=== PATIENT | female | born 1965 | race Caucasian/White ===

== ENCOUNTER 2024-04-30 06:07 | Day surgery (SDC) | payer OTHER ==
[2024-04-30] MEDS ORDERED: Xylocaine 1% Vial 30 ML PF IJ ONE (06:08)
[2024-04-30] MEDS ORDERED: Lactated Ringers 1,000 ML IV ONE (06:13)
[2024-04-30] MEDS: CEFAZOLIN 2 GM/100 ML NaCl 2 GM/100 ML IVPB IV SCH (06:25)
[2024-04-30] MEDS: Lactated Ringers 1,000 ML IV SCH (06:26)
[2024-04-30 06:33] VITALS: RESP 16
[2024-04-30] MEDS ORDERED: Versed 2 MG/2 ML Injection ONE (07:49)
[2024-04-30] MEDS ORDERED: DIPRIVAN 200 MG/20 ML IV ONE (07:49)
[2024-04-30] MEDS ORDERED: SUBLIMAZE 100 MCG/2 ML ONE (07:49)
[2024-04-30] MEDS ORDERED: Zofran 4 MG/2 ML VIAL ONE (08:49)
[2024-04-30 09:42] VITALS: BP 110/69; PULSE 66; TEMP 97.7; O2SAT 95
--- NOTE | 2024-05-01 08:14 | OP ---
SURGERY DATE/TIME: 04/30/2024 PREOPERATIVE DIAGNOSIS: Right carpal tunnel syndrome. POSTOPERATIVE DIAGNOSIS: Right carpal tunnel syndrome. PROCEDURE: Right carpal tunnel release. SURGEON: Quinton Winslow II, DO. ANESTHESIA: Mann block. DESCRIPTION OF PROCEDURE AND FINDINGS: The patient was identified and informed consent was obtained. The patient was then taken to the operative suite where she was placed into the supine position on the operating table and the [place] block anesthetic was administered. A standard time-out was taken. The right upper extremity was then prepped and draped in the usual sterile fashion. Incision was carried out from the distal wrist crease to the level of the fully abducted thumb webspace just ulnar to the thenar crease. Skin was incised. Dissection was carried out through the subcutaneous tissue. Heiss retractors were placed proximally and distally. Any bleeders were cauterized. Dissection was then carried out through the superficial palmar fascia. The retractors were then repositioned and a Ragnell retractor was placed proximally under the skin and subcutaneous tissue. A fresh #15 blade was utilized to resect the transverse carpal ligament. Care was taken to stay on the far ulnar side of the wound. Once the ligament had been resected, the median nerve was noted to be quite hyperemic, flattened, and hourglass shaped. The motor branch was inspected and noted to be intact. The floor was inspected and there were no masses or cysts. The antebrachial fascia was then split proximally for a distance of about 2 cm under direct vision such that the asphalt spreader operator's fingertip could easily be placed into the canal. The wound was then copiously irrigated and closed with interrupted 5-0 nylon suture. Adaptics, 4 x 4's, and a Kanwal dressing applied. The patient was then transferred to the cart and taken to Day Surgery in satisfactory condition having tolerated the procedure well.
== END 2024-04-30 10:00 | disposition home or self-care (01) ==
LOC: SDC 06:07
PROVIDERS: ATTEND Orthopaedic Surgery
DX: G56.01 Carpal tunnel syndrome, right upper limb (principal)
CPT/HCPCS: 64721; J0690; J2250; J2405; J2704; J3010

== ENCOUNTER 2024-09-23 07:25 | Day surgery (SDC) | payer OTHER ==
[2024-09-23] MEDS ORDERED: CEFAZOLIN 2 GM/100 ML NaCl 2 GM/100 ML IVPB IV SCH (07:45)
[2024-09-23 07:57] VITALS: RESP 16; TEMP 98.9
[2024-09-23] MEDS ORDERED: Lactated Ringers 1,000 ML IV ONE (08:09)
[2024-09-23] MEDS ORDERED: CEFAZOLIN 2 GM/100 ML NaCl 2 GM/100 ML IVPB IV ONE (08:09)
[2024-09-23] MEDS ORDERED: Xylocaine 1% Vial 30 ML PF IJ ONE (08:35)
[2024-09-23] MEDS: Lactated Ringers 1,000 ML IV SCH (09:48)
[2024-09-23] MEDS ORDERED: Versed 2 MG/2 ML Injection ONE (09:51)
[2024-09-23] MEDS ORDERED: SUBLIMAZE 100 MCG/2 ML ONE ×2 (09:51→10:58)
[2024-09-23] MEDS ORDERED: Zofran 4 MG/2 ML VIAL ONE (09:52)
[2024-09-23] MEDS ORDERED: TORAdol 30 mg Injection ONE (10:32)
[2024-09-23] MEDS: Compazine 10 MG/2 ML IV ONE (11:34)
[2024-09-23 12:09] VITALS: BP 122/62; PULSE 63; O2SAT 95
--- NOTE | 2024-09-24 11:02 | OP ---
SURGERY DATE/TIME: 09/23/2024 [id number] PREOPERATIVE DIAGNOSIS: Left carpal tunnel syndrome. POSTOPERATIVE DIAGNOSIS: Left carpal tunnel syndrome. PROCEDURE: Left carpal tunnel release. SURGEON: Quinton Winslow II, DO. ANESTHESIA: Mann block. DESCRIPTION OF PROCEDURE AND FINDINGS: The patient was identified and informed consent was obtained. The patient was taken to the operative suite where the [place] block anesthetic was administered. Once an appropriate level of anesthesia had been obtained, the left upper extremity was then prepped and draped in the usual sterile fashion. A standard time-out was taken. At this point incision was carried out from the distal wrist crease to the level of the fully abducted thumb webbed space just ulnar to the thenar crease. Skin was incised. Dissection was carried out through the subcutaneous tissue. Heiss retractors were positioned proximally and distally, and a Ragnell retractor was placed proximally under the skin and subcutaneous tissue. Dissection was carried out through the superficial palmar fascia, and the retractors were repositioned. Utilizing a fresh #15 knife blade, the transverse carpal ligament was resected. Care was taken to stay on the far ulnar side of the wound. The nerve was inspected and noted to be very hyperemic and hourglass-shaped, quite flattened. At this point the motor branch was inspected and noted to be intact. The floor was inspected, no masses or cysts. The antebrachial fascia was then split proximally for a distance of about 2 cm under direct vision with a pair of baby Metzenbaum scissors. At this point the wound was then irrigated and closed with interrupted 5-0 nylon suture. Adaptics, 4 x 4's, and a Turlock dressing applied. The patient was transferred to the cart and taken to the recovery room in satisfactory condition, having tolerated the procedure well.
== END 2024-09-23 12:15 | disposition home or self-care (01) ==
LOC: SDC 07:25
PROVIDERS: ATTEND Orthopaedic Surgery
DX: G56.02 Carpal tunnel syndrome, left upper limb (principal)
CPT/HCPCS: 64721; J0690; J1885; J2250; J2405; J2704; J3010